=== PATIENT | male | born 1965 | race Caucasian/White ===

== ENCOUNTER 2017-01-02 02:27 | Emergency (ER) | payer MEDICAID ==
[~2017-01-02] VITALS: Ht 175.3 cm; Wt 83.9 kg
[2017-01-02 03:00] VITALS: BP 132/87
[2017-01-02 04:54] LABS: Basophils # (auto) 0 uL; Basophils % (auto) 0.3 % (0.0-2.0); DEFINITIVE VIEW TRANSMISSION; Eosinophils # (auto) 0.7 uL; Eosinophils % (auto) 5.6 % (0.0-7.0); Hematocrit 45.8 % (41.0-53.0); Hemoglobin 15.5 g/dL (13.5-17.5); Lymphocytes # (auto) 1.5 uL; Lymphocytes % (auto) 11.2 % (10.0-50.0); Mean Corpuscular Hemoglobin 31.5 pg (28.0-32.0); Mean Corpuscular Hgb Conc. 33.8 g/dL (32.0-36.0); Mean Corpuscular Volume 93.3 fL (80.0-100.0); Mean Platelet Volume 8.6 fL (7.4-10.4); Monocytes # (auto) 1.4 uL; Monocytes % (auto) 10.4 % (0.0-12.0); Neutrophils # (auto) 9.5 uL; Neutrophils % (auto) 72.5 % (37.0-80.0); Platelet Count (auto) 302 10^3/uL (140-450); Red Cell Distribution Width 13.8 % (11.6-16.0); White Blood Cell 13.1 10^3/uL (4.4-10.8)
[2017-01-02 05:03] LABS: Urine Bilirubin Negative (Negative); Urine Blood Negative /uL (Negative); Urine Color Yellow (Yellow); Urine Glucose Normal (Normal); Urine Ketone Negative (Negative); Urine Nitrite Negative (Negative); Urine RBC 2 /hpf (0 - 3); Urine Urobilinogen Normal (Negative); Urine pH 5.5 (5.0-8.0)
[2017-01-02 05:17] LABS: BUN/Creatinine Ratio 11.9; Bilirubin, Total 0.4 mg/dL (0.2-1.0); Calcium 9.5 mg/dL (8.5-10.1); Potassium 4.2 mmol/L (3.5-5.1); Total Protein 8.3 g/dL (6.4-8.2)
== END 2017-01-02 04:00 | disposition left against medical advice (07) ==
LOC: ER 02:36
DX: R19.7 Diarrhea, unspecified (principal); Z53.21 Procedure and treatment not carried out due to patient leaving prior to being seen by health care provider
CPT/HCPCS: 36415; 80053; 81001; 85025; G0434; J7030

== ENCOUNTER 2017-01-02 08:03 | Inpatient (IN) | payer MEDICAID ==
[~2017-01-02] VITALS: Ht 175.3 cm; Wt 78.7 kg
[2017-01-02] MEDS ORDERED: SODIUM CHLORIDE 0.9% 1,000 ML IVB ONE (08:37)
[2017-01-02 09:31] LABS: Magnesium 2.1 mg/dL (1.6-2.6)
[2017-01-02] MEDS ORDERED: metroNIDAZOLE 500MG/100ML 100 ML IV ONE (12:15)
[2017-01-02] MEDS ORDERED: LORazepam 0.5 MG TAB PO PRN (12:30)
[2017-01-02] MEDS ORDERED: MORPHINE SULF INJ 2 MG/ML SYRINGE 1ML IV PRN (12:30)
[2017-01-02] MEDS ORDERED: cefTRIAXone 1GM/50ML D5W 50 ML IV ONE (12:30)
[2017-01-02] MEDS ORDERED: HYDROcodone-ACET 5/325MG TAB PO PRN (12:30)
[2017-01-02] MEDS ORDERED: ALBUTEROL SULF 2.5 MG/0.5ML(0.5%) NEB SOLN NEB PRN (12:30)
[2017-01-02] MEDS ORDERED: ACETAMINOPHEN 500 MG TAB PO PRN (12:30)
[2017-01-02] MEDS ORDERED: PROCHLORPERAZINE EDISYLATE 5 MG/ML 2ML VIAL IV PRN (12:30)
[2017-01-02] MEDS ORDERED: TEMAZEPAM 15 MG CAP PO PRN (12:30)
[2017-01-02 12:40] LABS: Basophils # (auto) 0.1 uL; Basophils % (auto) 1.1 % (0.0-2.0); Eosinophils # (auto) 0.6 uL; Eosinophils % (auto) 7.6 % (0.0-7.0); Hematocrit 44.2 % (41.0-53.0); Hemoglobin 14.5 g/dL (13.5-17.5); Lymphocytes # (auto) 1.4 uL; Lymphocytes % (auto) 16.5 % (10.0-50.0); Mean Corpuscular Hgb Conc. 32.7 g/dL (32.0-36.0); Mean Corpuscular Volume 94.8 fL (80.0-100.0); Monocytes # (auto) 0.9 uL; Monocytes % (auto) 10.7 % (0.0-12.0); Neutrophils # (auto) 5.4 uL; Neutrophils % (auto) 64.1 % (37.0-80.0); Platelet Count (auto) 283 10^3/uL (140-450); Red Cell Distribution Width 13.8 % (11.6-16.0); White Blood Cell 8.4 10^3/uL (4.4-10.8)
[2017-01-02 12:47] LABS: Albumin 3.9 g/dL (3.4-5.0); BUN/Creatinine Ratio 13.8; Bilirubin, Total 0.4 mg/dL (0.2-1.0); Calcium 9.3 mg/dL (8.5-10.1); Total Protein 8.1 g/dL (6.4-8.2)
[2017-01-02] MEDS: SODIUM CHLORIDE 0.9% 1,000 ML IV SCH ×2 (13:00→22:21)
[2017-01-02] MEDS: FAMOTIDINE (10MG/ML) 2ML VL IV SCH ×2 (13:00→23:56)
[2017-01-02 13:12] LABS: Urine Bilirubin Negative (Negative); Urine Blood Negative /uL (Negative); Urine Color Yellow (Yellow); Urine Glucose Normal (Normal); Urine Ketone Negative (Negative); Urine Mucus FEW (None Seen); Urine Nitrite Negative (Negative); Urine RBC 4 /hpf (0 - 3); Urine Squamous Epithelial Cell FEW /hpf (<5); Urine Urobilinogen Normal (Negative); Urine pH 5.5 (5.0-8.0)
[2017-01-02] MEDS: metroNIDAZOLE 500MG/100ML 100 ML IV SCH ×2 (17:42→23:56)
[2017-01-02 21:30] VITALS: BP 126/76
[2017-01-02 23:34] VITALS: BP 124/82
[2017-01-03 05:13] VITALS: BP 134/80
[2017-01-03] MEDS: metroNIDAZOLE 500MG/100ML 100 ML IV SCH ×2 (05:40→12:00)
[2017-01-03] MEDS: SODIUM CHLORIDE 0.9% 1,000 ML IV SCH ×2 (05:40→15:03)
[2017-01-03 05:44] LABS: Basophils # (auto) 0.1 uL; Basophils % (auto) 0.9 % (0.0-2.0); Eosinophils # (auto) 0.7 uL; Eosinophils % (auto) 11.8 % (0.0-7.0); Hematocrit 39.5 % (41.0-53.0); Hemoglobin 13.1 g/dL (13.5-17.5); Lymphocytes # (auto) 1.3 uL; Lymphocytes % (auto) 23.2 % (10.0-50.0); Mean Corpuscular Hemoglobin 31.1 pg (28.0-32.0); Mean Corpuscular Hgb Conc. 33.1 g/dL (32.0-36.0); Mean Corpuscular Volume 94.2 fL (80.0-100.0); Mean Platelet Volume 8.6 fL (7.4-10.4); Monocytes # (auto) 0.6 uL; Monocytes % (auto) 10.9 % (0.0-12.0); Neutrophils % (auto) 53.2 % (37.0-80.0); Platelet Count (auto) 266 10^3/uL (140-450); Red Cell Distribution Width 13.7 % (11.6-16.0); White Blood Cell 5.7 10^3/uL (4.4-10.8)
[2017-01-03 05:58] LABS: Albumin 3.3 g/dL (3.4-5.0); BUN/Creatinine Ratio 8.8; Calcium 8.4 mg/dL (8.5-10.1); Potassium 3.9 mmol/L (3.5-5.1)
[2017-01-03 06:00] LABS: Bilirubin, Total 0.4 mg/dL (0.2-1.0); Total Protein 6.6 g/dL (6.4-8.2)
[2017-01-03 06:01] LABS: Cholesterol 116 mg/dL (< 200); HDL Cholesterol 23 mg/dL (40-59); LDL Cholesterol 80 mg/dL (< 100); Triglycerides 148 mg/dL (< 150)
[2017-01-03 09:00] VITALS: BP 134/82
[2017-01-03] MEDS ORDERED: cefTRIAXone 1GM/50ML D5W 50 ML IV SCH (09:00)
[2017-01-03] MEDS: FAMOTIDINE (10MG/ML) 2ML VL IV SCH (12:30)
[2017-01-03 13:00] VITALS: BP 139/87
== END 2017-01-03 15:30 | disposition home or self-care (01) | DRG 249 ==
LOC: ER 08:06 → OVERFLOW 08:07 → WEST WING 16:29
PROVIDERS: ADMIT Internal Medicine; ATTEND Internal Medicine
DX: K52.9 Noninfective gastroenteritis and colitis, unspecified (principal); N39.0 Urinary tract infection, site not specified; F12.10 Cannabis abuse, uncomplicated; J44.9 Chronic obstructive pulmonary disease, unspecified; F15.10 Other stimulant abuse, uncomplicated; F17.210 Nicotine dependence, cigarettes, uncomplicated; F20.9 Schizophrenia, unspecified; M19.90 Unspecified osteoarthritis, unspecified site; M47.816 Spondylosis without myelopathy or radiculopathy, lumbar region; Z59.0 Homelessness; Z80.9 Family history of malignant neoplasm, unspecified; F32.9 Major depressive disorder, single episode, unspecified; N20.0 Calculus of kidney; B19.20 Unspecified viral hepatitis C without hepatic coma
CPT/HCPCS: 36415; 71020; 74176; 80053; 80061; 81001; 82150; 83690; 83735; 84443; 85025; 85652; 86141; 87493; 93005; 94761; 96365; 96366; 96367; J0696; J3490

== ENCOUNTER 2017-06-04 10:11 | Emergency (ER) | payer MEDICAID ==
[~2017-06-04] VITALS: Ht 180.3 cm; Wt 83.9 kg
[2017-06-04] MEDS ORDERED: SODIUM CHLORIDE 0.9% 1,000 ML IV ONE (11:00)
[2017-06-04 11:03] LABS: Hematocrit 41.4 % (41.0-53.0); Hemoglobin 14.4 g/dL (13.5-17.5); Mean Corpuscular Hemoglobin 32.6 pg (28.0-32.0); Mean Corpuscular Hgb Conc. 34.9 g/dL (32.0-36.0); Mean Corpuscular Volume 93.6 fL (80.0-100.0); Mean Platelet Volume 8.6 fL (6.9-10.8); Platelet Count (auto) 211 10^3/uL (140-450); Red Cell Distribution Width 13.6 % (11.8-14.3); White Blood Cell 10.1 10^3/uL (4.4-10.8)
[2017-06-04 11:12] LABS: Metamyelocytes % 0; Myelocytes % 0; Promyelocytes % 0; Reactive Lymphocytes 0
[2017-06-04 11:25] LABS: Albumin 3.5 g/dL (3.4-5.0); Alkaline Phosphatase 84 U/L (45-117); Anion Gap 10 (5-15); Aspartate Aminotransferase 21 U/L (15-37); BUN/Creatinine Ratio 13.3; Bilirubin, Total 0.5 mg/dL (0.2-1.0); Blood Urea Nitrogen 22 mg/dL (7-18); Calcium 9.1 mg/dL (8.5-10.1); Carbon Dioxide 27 mmol/L (21-32); Chloride 97 mmol/L (98-107); GFR African American 56 mL/min; GFR Non-African American 47 mL/min; Glucose 92 mg/dL (74-106); Potassium 3.5 mmol/L (3.5-5.1); Sodium 134 mmol/L (136-145); Total Protein 8.7 g/dL (6.4-8.2)
[2017-06-04 12:09] LABS: Platelet Estimate Adequate
[2017-06-04 12:37] VITALS: BP 129/73
== END 2017-06-04 12:51 | disposition home or self-care (01) ==
LOC: ER 10:11
DX: E86.0 Dehydration (principal); J20.9 Acute bronchitis, unspecified; F17.210 Nicotine dependence, cigarettes, uncomplicated; R51 Headache; Z59.0 Homelessness
CPT/HCPCS: 36415; 71020; 80053; 84484; 85007; 85027; 93005; 94761; 96360; 99285; J7030

== ENCOUNTER 2017-09-02 14:48 | Emergency (ER) | payer MEDICAID ==
[~2017-09-02] VITALS: Ht 175.3 cm; Wt 81.6 kg
[2017-09-02 15:22] VITALS: BP 121/102
[2017-09-02 16:08] LABS: Basophils # (auto) 0.2 uL; Basophils % (auto) 1.3 % (0.0-2.0); Eosinophils # (auto) 0.9 uL; Eosinophils % (auto) 7.2 % (0.0-7.0); Hematocrit 38.2 % (41.0-53.0); Hemoglobin 12.7 g/dL (13.5-17.5); Lymphocytes # (auto) 1.3 uL; Mean Corpuscular Hgb Conc. 33.3 g/dL (32.0-36.0); Mean Corpuscular Volume 93.1 fL (80.0-100.0); Mean Platelet Volume 8.4 fL (6.9-10.8); Monocytes # (auto) 0.9 uL; Neutrophils # (auto) 9.5 uL; Neutrophils % (auto) 74.5 % (37.0-80.0); Nucleated Red Blood Cells % 0.1 %; Platelet Count (auto) 260 10^3/uL (140-450); Red Cell Distribution Width 14.7 % (11.8-14.3); White Blood Cell 12.7 10^3/uL (4.4-10.8)
[2017-09-02 16:13] LABS: Albumin 3.9 g/dL (3.4-5.0); Calcium 9.4 mg/dL (8.5-10.1); Potassium 3.5 mmol/L (3.5-5.1)
[2017-09-02 16:18] LABS: Bilirubin, Total 0.8 mg/dL (0.2-1.0); Total Protein 8.4 g/dL (6.4-8.2)
== END 2017-09-03 21:15 | disposition left against medical advice (07) ==
LOC: ER 14:48
DX: R10.9 Unspecified abdominal pain (principal); Z53.21 Procedure and treatment not carried out due to patient leaving prior to being seen by health care provider
CPT/HCPCS: 36415; 74176; 80053; 82150; 83690; 85025

== ENCOUNTER 2017-09-02 20:38 | Emergency (ER) | payer MEDICAID ==
[~2017-09-02] VITALS: Ht 175.3 cm; Wt 83.9 kg
[2017-09-02 21:08] VITALS: BP 135/113
== END 2017-09-03 03:37 | disposition left against medical advice (07) ==
LOC: ER 20:38
DX: R10.9 Unspecified abdominal pain (principal); R11.2 Nausea with vomiting, unspecified; Z53.21 Procedure and treatment not carried out due to patient leaving prior to being seen by health care provider

== ENCOUNTER 2017-12-17 16:42 | Emergency (ER) | payer MEDICAID | END 2017-12-17 17:10 | disposition left against medical advice (07) | LOC: ER 16:42 | DX: M25.571 Pain in right ankle and joints of right foot (principal); Z53.21 Procedure and treatment not carried out due to patient leaving prior to being seen by health care provider ==

== ENCOUNTER 2017-12-30 00:53 | Emergency (ER) | payer MEDICAID ==
[~2017-12-30] VITALS: Ht 180.3 cm; Wt 81.6 kg
[2017-12-30 07:01] LABS: Basophils # (auto) 0.1 uL; Basophils % (auto) 0.4 % (0.0-2.0); Eosinophils # (auto) 0.3 uL; Eosinophils % (auto) 1.3 % (0.0-7.0); Hemoglobin 13.4 g/dL (13.5-17.5); Lymphocytes # (auto) 1.3 uL; Lymphocytes % (auto) 5.9 % (10.0-50.0); Mean Corpuscular Hemoglobin 31.9 pg (28.0-32.0); Mean Corpuscular Hgb Conc. 33.6 g/dL (32.0-36.0); Mean Corpuscular Volume 94.8 fL (80.0-100.0); Monocytes # (auto) 2.2 uL; Monocytes % (auto) 10.4 % (0.0-12.0); Neutrophils # (auto) 17.5 uL; Platelet Count (auto) 363 10^3/uL (140-450); Red Blood Cells 4.22 10^6/uL (4.5-5.90); Red Cell Distribution Width 13.4 % (11.8-14.3); White Blood Cell 21.4 10^3/uL (4.4-10.8)
[2017-12-30 07:17] VITALS: BP 108/66
[2017-12-30 07:25] LABS: Albumin 3.4 g/dL (3.4-5.0); BUN/Creatinine Ratio 16.6; Bilirubin, Total 0.6 mg/dL (0.2-1.0); Calcium 9.6 mg/dL (8.5-10.1); Potassium 3.7 mmol/L (3.5-5.1); Total Protein 8.9 g/dL (6.4-8.2)
[2017-12-30 07:45] LABS: Urine Bacteria MANY /hpf (None Seen); Urine Blood 1+ /uL (Negative); Urine Mucus FEW (None Seen); Urine Specific Gravity 1.012 (1.001-1.035); Urine WBC 138 /hpf (0 - 3)
[2017-12-30] MEDS ORDERED: KETOROLAC TROMETH 30 MG/ML 1ML VIAL IV ONE (07:45)
[2017-12-30] MEDS ORDERED: cefTRIAXone 1GM/10ml IVPUSH 10 ML IV ONE ×2 (07:45)
[2017-12-30] MEDS ORDERED: SODIUM CHLORIDE 0.9% 1,000 ML IV ONE (08:00)
== END 2017-12-30 09:22 | disposition home or self-care (01) ==
LOC: ER 00:55
DX: N45.3 Epididymo-orchitis (principal); N43.3 Hydrocele, unspecified; N39.0 Urinary tract infection, site not specified; F17.210 Nicotine dependence, cigarettes, uncomplicated; Z59.0 Homelessness
CPT/HCPCS: 36415; 76870; 80053; 81001; 85025; 87040; 96361; 96374; 96375; 99285; J1885; J7030

== ENCOUNTER 2018-12-06 03:01 | Emergency (ER) | payer MEDICAID ==
[~2018-12-06] VITALS: Ht 175.3 cm; Wt 83.9 kg
[2018-12-06 03:42] VITALS: BP 140/84
== END 2018-12-06 05:08 | disposition left against medical advice (07) ==
LOC: ER 03:05
DX: M79.672 Pain in left foot (principal); Z53.21 Procedure and treatment not carried out due to patient leaving prior to being seen by health care provider

== ENCOUNTER 2021-06-15 00:39 | Emergency (ER) | payer MEDICAID ==
[~2021-06-15] VITALS: Ht 175.3 cm; Wt 83.0 kg
[2021-06-15 00:39] VITALS: BP 139/106
[2021-06-15] MEDS ORDERED: KETOROLAC TROMETH 60MG/2ML VIAL IM ONE (02:30)
== END 2021-06-15 03:05 | disposition home or self-care (01) ==
LOC: ER 00:39
DX: M10.9 Gout, unspecified (principal); M19.072 Primary osteoarthritis, left ankle and foot; M19.071 Primary osteoarthritis, right ankle and foot; F17.210 Nicotine dependence, cigarettes, uncomplicated; I10 Essential (primary) hypertension; K21.9 Gastro-esophageal reflux disease without esophagitis; Z59.0 Homelessness
CPT/HCPCS: 73620; 96372; 99283; J1885

== ENCOUNTER 2021-07-13 16:23 | Emergency (ER) | payer MEDICAID ==
[~2021-07-13] VITALS: Ht 175.3 cm; Wt 83.9 kg
[2021-07-13 17:26] VITALS: BP 168/80
== END 2021-07-13 17:01 | disposition home or self-care (01) ==
LOC: ER 16:23
DX: S63.501A Unspecified sprain of right wrist, initial encounter (principal); M19.031 Primary osteoarthritis, right wrist; F17.210 Nicotine dependence, cigarettes, uncomplicated; Z59.00 Homelessness unspecified; W18.39XA Other fall on same level, initial encounter; Y93.89 Activity, other specified; Y92.89 Other specified places as the place of occurrence of the external cause; Y99.8 Other external cause status
CPT/HCPCS: 73110

== ENCOUNTER 2022-11-14 10:46 | Emergency (ER) | payer MEDICAID ==
[~2022-11-14] VITALS: Ht 175.3 cm; Wt 84.1 kg
[2022-11-14 12:31] VITALS: BP 133/92
[2022-11-14] MEDS ORDERED: HYDROcodone-ACET 10/325MG TAB PO ONE (13:00)
[2022-11-14] MEDS ORDERED: TRAM-297 PO (13:32)
[2022-11-14] MEDS ORDERED: NAPR500T31 PO (13:32)
== END 2022-11-14 13:43 | disposition home or self-care (01) ==
LOC: ER 10:46
DX: S83.91XA Sprain of unspecified site of right knee, initial encounter (principal); F17.210 Nicotine dependence, cigarettes, uncomplicated; F12.90 Cannabis use, unspecified, uncomplicated; F32.9 Major depressive disorder, single episode, unspecified; F20.9 Schizophrenia, unspecified; Z59.00 Homelessness unspecified; X50.1XXA Overexertion from prolonged static or awkward postures, initial encounter; Y93.89 Activity, other specified; Y92.89 Other specified places as the place of occurrence of the external cause; Y99.8 Other external cause status
CPT/HCPCS: 73562

== ENCOUNTER 2023-02-05 13:29 | Emergency (ER) | payer MEDICAID ==
[~2023-02-05] VITALS: Ht 175.3 cm; Wt 88.0 kg
[~2023-02-05 13:29] MED LIST: NAPR500T31 PO; TRAM-297 PO
[2023-02-05] MEDS ORDERED: HYDROcodone-ACET 10/325MG TAB PO ONE (15:00)
[2023-02-05 15:19] VITALS: BP 143/83
== END 2023-02-05 15:38 | disposition left against medical advice (07) ==
LOC: ER 13:29
DX: M23.92 Unspecified internal derangement of left knee (principal); M23.91 Unspecified internal derangement of right knee; F17.210 Nicotine dependence, cigarettes, uncomplicated; F12.10 Cannabis abuse, uncomplicated; Z59.00 Homelessness unspecified; Z88.6 Allergy status to analgesic agent
CPT/HCPCS: 73562

== ENCOUNTER 2024-09-07 22:43 | Emergency (ER) | payer MEDICAID ==
[~2024-09-07] VITALS: Ht 175.3 cm; Wt 82.2 kg
[2024-09-07 22:43] VITALS: BP 169/121; PULSE 106
[~2024-09-07 22:43] MED LIST changes: +NAPR-746 PO; -NAPR500T31 PO
[2024-09-07] MEDS: ALBUTEROL SULF 2.5 MG/0.5ML(0.5%) NEB SOLN NEB ONE (23:31)
[2024-09-07] MEDS: IPRATROPIUM BROM 0.5 MG/2.5ML INH SOL NEB ONE (23:31)
[2024-09-07 23:32] VITALS: RESP 18; O2SAT 99
[2024-09-08] MEDS ORDERED: PROM1SOL4 PO (00:27)
[2024-09-08] MEDS ORDERED: PRED20TA2 PO (00:27)
[2024-09-08] MEDS ORDERED: ALBU108A5 IN (00:27)
[2024-09-08] MEDS ORDERED: AZITTAB PO (00:27)
--- NOTE | 2024-09-08 00:32 | ED.PDOC ---
SOB-HPI HPI Comments 51-year-old male complaining of cough congestion x3 days. Poor reports history of wheezing over the last two days. No fever no chills. History of asthma. Nothing makes it better, nothing makes it worse. Denies any shortness of breath. Chief Complaint: Cough Time Seen by MD: 22:52 Primary Care Provider: RAY Reviewed notes: Nurses Notes Information Source: Patient Mode of Arrival: Ambulatory Severity: Mild Past Medical History PAST MEDICAL HISTORY: Anxiety, Depression, Schizophrenia Surgical History: Denies all surgeries Family History Family History: Reviewed,noncontributory to illness Social History Smoker: Cigarettes, Greater Than 1 Pack/Day Alcohol: Occasionally Drugs: Marijuana Lives In: Homeless Constitutional: denies: chills, diaphoresis, fatigue, fever, malaise, sweats, weakness, others EENTM: denies: blurred vision, double vision, ear bleeding, ear discharge, ear drainage, ear pain, ear ringing, eye pain, eye redness, hearing loss, mouth pain, mouth swelling, nasal discharge, nose bleeding, nose congestion, nose pain, photophobia, tearing, throat pain, throat swelling, voice changes, others Respiratory: reports: cough, wheezing; denies: hemoptysis, orthopnea, SOB at rest, shortness of breath, SOB with excertion, stridor, others Cardiovascular: denies: chest pain, dizzy spells, diaphoresis, Dyspnea on exertion, edema, irregular heart beat, left arm pain, lightheadedness, palpitations, PND, syncope, others Gastrointestinal: denies: abdomen distended, abdominal pain, blood streaked bowels, constipated, diarrhea, dysphagia, difficulty swallowing, hematemesis, melena, nausea, poor appetite, poor fluid intake, rectal bleeding, rectal pain, vomiting, others Genitourinary: denies: burning, dysuria, flank pain, frequency, hematuria, incontinence, penile discharge, penile sore, pain, testicle pain, testicle swelling, urgency, others Neurological: denies: dizziness, fainting, headache, left sided numbness, left sided weakness, numbness, paresthesia, pre-existing deficit, right sided numbness, right sided weakness, seizure, speech problems, tingling, tremors, weakness, others Musculoskeletal: denies: back pain, gout, joint pain, joint swelling, muscle pain, muscle stiffness, neck pain, others Integumetry: denies: bruises, change in color, change in hair/nails, dryness, laceration, lesions, lumps, rash, wounds, others Allergic/Immunocompromised: denies: Difficulty Healing, Frequent Infections, Hives, Itching, others Physical Exam General Appearance: No Apparent Distress, Normal HEENT: Normal ENT Inspection, Pharynx Normal, TMs Normal Neck: Full Range of Motion, Non-Tender, Normal, Normal Inspection Respiratory: Chest Non-Tender, No Accessory Muscle Use, No Respiratory Distress, Wheezing Cardiovascular: No Edema, No JVD, No Murmur, No Gallop, Normal Peripheral Pulses, Regular Rate/Rhythm Breast Exam: Deferred Gastrointestinal: No Organomegaly, Non Tender, No Pulsatile Mass, Normal Bowel Sounds, Soft Genitalia: Deferred Pelvic: Deferred Rectal: Deferred Extremities: No calf tenderness, Normal capillary refill, Normal inspection, Normal range of motion, Non-tender, No pedal edema Musculoskeletal : Apperance: Normal Neurologic: Alert, 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 Was a procedure done?: No Differential Dx Differential Diagnosis: Anxiety, Asthma, Bronchitis, Pneumonia, Pulmonary Embolism, Respiratory Distress X-Ray, Labs, Meds, VS Vital Signs Date Time Temp Pulse Resp B/P (MAP) Pulse Ox O2 Delivery O2 Flow Rate FiO2 09/07/24 23:32 18 99 Room Air* 0 21 09/07/24 22:43 97.6 106 18 169/121 (137) 96 Current Medications Medications (Trade) Dose Ordered Sig/Titi Route Start Time Stop Time Status Last Admin Albuterol (Ventolin Medneb) 2.5 mg ONCE ONCE NEB 09/07/24 23:00 09/07/24 23:01 DC 09/07/24 23:31 Ipratropium [place] (Atrovent Medneb) 0.5 mg ONCE ONCE NEB 09/07/24 23:00 09/07/24 23:01 DC 09/07/24 23:31 X-Ray, Labs, Meds, VS Comment Imaging: X-rays and CT scans were reviewed and interpreted by this provider, imaging shows no fractures and no pathological disease. Pending radiology review. Laboratory: Labs reviewed and interpreted by this provider. No significant abnormalities noted. Patient has prior medical visits reviewed. Med reconciliation performed Vital signs reviewed Time of 1ST Reevaluation: 00:30 Reevaluation 1ST: Improved Patient Education/Counseling: Diagnosis, Treatment, Need For Follow Up (Follow up with the PCP in the next 24-48 hours. Follow up in the emergency department if symptoms worsen in the next 48 hours.) Family Education/Counseling: Diagnosis, Treatment Departure 1 Departure Time of Disposition: 00:24 Impression: Primary Impression: Acute bronchitis Qualified Codes: J20.9 - Acute bronchitis, unspecified Disposition: HOME / SELF CARE / HOMELESS Condition: Fair e-Prescriptions Promethazine-Dm (Promethazine Dm 6.25-15 mg/5Ml) 1 Gracia Gracia 5 ML PO TID, #240 ML Prov: ANA PACHECO 09/08/24 Azithromycin (Zithromax Z-Demetrius) 250 Mg Tab 250 MG PO DAILY for 5 Days, #6 TAB Prov: ANA PACHECO 09/08/24 Prednisone (Prednisone) 20 Mg Tab 20 MG PO DAILY for 5 Days, #5 MG Prov: ANA PACHECO 09/08/24 Albuterol Sulfate (Albuterol Sulfate Hfa) 108 Mcg/Act Aer 108 MCG IN TID, #1 AER Prov: ANA PACHECO 09/08/24 Discharged With: Self Critical Care Note Critical Care Time?: No Stability Stability form required: No Heart Score Heart Score: Heart Score Response (Comments) Value History N/A 0 EKG N/A 0 Age N/A 0 Risk Factors N/A 0 Troponin N/A 0 Total 0 ANA PACHECO Sep 08, 2024 00:32
== END 2024-09-08 02:55 | disposition home or self-care (01) ==
LOC: ER 22:43
DX: J20.9 Acute bronchitis, unspecified (principal); F41.9 Anxiety disorder, unspecified; F32.9 Major depressive disorder, single episode, unspecified; F20.9 Schizophrenia, unspecified; F17.210 Nicotine dependence, cigarettes, uncomplicated; F15.90 Other stimulant use, unspecified, uncomplicated; J45.909 Unspecified asthma, uncomplicated; Z59.00 Homelessness unspecified
CPT/HCPCS: 94640